=== PATIENT | female | born 1940 | race Caucasian/White ===

== ENCOUNTER → 2016-12-16 | Outpatient (CLI) | payer MEDICARE ==
[~2016-12-16] MED LIST: ACET325T14 PO; AMLO10TA2 PO; ATOR10TA9 PO; LANS15CA5 PO; LIDO700A5 TD; METF10002 PO; METH500T97 PO; METO25TA4 PO; TRAM-28 PO; VALS40TA2 PO
== END | disposition home or self-care (01) ==
LOC: CFH 12:54
PROVIDERS: ATTEND Family Medicine
DX: Z12.31 Encounter for screening mammogram for malignant neoplasm of breast (principal); Z98.890 Other specified postprocedural states
CPT/HCPCS: G0202

== ENCOUNTER 2018-06-28 16:12 | Emergency (ER) | payer MEDICARE ==
[~2018-06-28] VITALS: Ht 157.5 cm; Wt 59.1 kg
[~2018-06-28 16:12] MED LIST changes: -AMLO10TA2 PO; +AMLO10TA6 PO; -TRAM-28 PO; +TRAM-47 PO
[2018-06-28 16:51] LABS: BASOPHILS # (AUTO) 0.03 x10^3/uL (0-0.1); BASOPHILS % (AUTO) 0 % (0-1); EOSINOPHILS # (AUTO) 0.03 x10^3/uL (0-0.4); EOSINOPHILS % (AUTO) 1 % (1-7); LYMPHOCYTES # (AUTO) 3.16 x10^3/uL (1-3.4); LYMPHOCYTES % (AUTO) 46 % (22-44); MD NO; MEAN CORPUSCULAR HEMOGLOBIN 29.8 pg (27.0-34.8); MEAN CORPUSCULAR HGB CONC 32.9 g/dL (32.4-35.8); MEAN CORPUSCULAR VOLUME 90.7 fL (80-100); MEAN PLATELET VOLUME 8.3 fL (7.4-10.4); MONOCYTES # (AUTO) 0.57 x10^3/uL (0.2-0.8); MONOCYTES % (AUTO) 8 % (2-9); NEUTROPHILS % (AUTO) 45 % (42-75); PLATELET COUNT 227 x10^3/uL (130-400); RED BLOOD COUNT 4.98 x10^6/uL (3.82-5.3); RED CELL DISTRIBUTION WIDTH 14.2 % (9.6-15.2)
[2018-06-28] MEDS ORDERED: ALEN70TA5 PO (16:51)
[2018-06-28] MEDS ORDERED: OMEP20TA62 PO (16:51)
[2018-06-28 17:03] LABS: ALBUMIN 3.9 g/dL (3.4-5.0); ANION GAP 8 mmol/L (5-15); CALCIUM 8.9 mg/dL (8.5-10.1); CHLORIDE 101 mmol/L (98-107)
[2018-06-28 17:06] LABS: ALANINE AMINOTRANSFERASE 28 U/L (12-78); ALKALINE PHOSPHATASE 58 U/L (45-117); BILIRUBIN,TOTAL 0.4 mg/dL (0.2-1.0); CREATININE 1.06 mg/dL (0.55-1.02); TOTAL PROTEIN 8.2 g/dL (6.4-8.2)
[2018-06-28 17:23] LABS: CULTURE INDICATED? YES; MICROSCOPIC AUTO
[2018-06-28] MEDS ORDERED: MECLIZINE CHEWABLE 25 MG TAB ONE (17:25)
[2018-06-28] MEDS ORDERED: MECLIZINE CHEWABLE 25 MG TAB PO ONE (17:30)
[2018-06-28] MEDS ORDERED: GADOBUTROL 7.5 MMOL/7.5 ML PFS ONE (18:57)
[2018-06-28 21:23] VITALS: BP 165/96
== END 2018-06-28 21:26 | disposition home or self-care (01) ==
LOC: ED 18:52
DX: R42 Dizziness and giddiness (principal); I10 Essential (primary) hypertension; E11.9 Type 2 diabetes mellitus without complications
CPT/HCPCS: 36415; 70450; 70553; 80053; 81001; 85025; 87077; 87086; 87186; 93005; 99284; A9585